=== PATIENT | female | born 1990 | race Caucasian/White ===

== ENCOUNTER 2019-10-25 03:44 | Emergency (ER) | payer MEDICAID ==
[~2019-10-25] VITALS: Ht 152.4 cm; Wt 64.0 kg
[2019-10-25 03:52] VITALS: BP 126/79
[2019-10-25] MEDS ORDERED: ACETAMINOPHEN 325MG TABLET PO ONE (04:15)
== END 2019-10-25 04:47 | disposition left against medical advice (07) ==
LOC: ER 03:44
DX: S01.511A Laceration without foreign body of lip, initial encounter (principal); Y04.0XXA Assault by unarmed brawl or fight, initial encounter; Y93.89 Activity, other specified; Y92.89 Other specified places as the place of occurrence of the external cause; Y99.8 Other external cause status
CPT/HCPCS: 99283